=== PATIENT | female | born 1950 | race Caucasian/White ===

== ENCOUNTER 2019-03-21 01:17 | Observation (INO) | payer MEDICARE, SELFPAY ==
[2019-03-21] VITALS (14 sets, daily range): BP systolic 122–152; BP diastolic 49–74; PULSE 74–101; RESP 16–26; TEMP 35.9–37.5; O2SAT 91–97; BMI 56.5; BMI 58.4; BMI 57.6
--- NOTE | 2019-03-21 01:31 | DI.RAD.S_ITS ---
PROCEDURE: XR CHEST 1V INDICATIONS: fever, chills, low O2, uti symptoms TECHNIQUE: One view of the chest was acquired. COMPARISON: [facility], CR, XR CHEST 1 VIEW, 09/12/2018, 8:46. [facility], CR, XR CHEST 1 VIEW, 09/09/2018, 16:48. FINDINGS: Surgical changes and devices: None. Lungs and pleura: Bilateral perihilar infiltrates consistent with pulmonary edema or bilateral pneumonia. No pleural effusions or pneumothorax. Mediastinum: Mediastinal contours appear normal. Heart size is mildly increased. Bones and chest wall: No suspicious bony lesions. Overlying soft tissues appear unremarkable. IMPRESSION: Bilateral perihilar infiltrates consistent stomach inal bilateral pneumonia. Dictated by: Kaylah Conner M.D. on 03/21/2019 at 8:57 Approved by: Kaylah Conner M.D. on 03/21/2019 at 9:01
--- NOTE | 2019-03-21 01:33 | ED_ITS ---
HPI - General Adult General Chief complaint: Urogenital-Female Stated complaint: Fever, painful urination Time Seen by Provider: 03/21/19 01:18 Source: patient, EMS and old records reviewed Mode of arrival: EMS Limitations: no limitations History of Present Illness HPI narrative: This is a 68-year-old female who comes to the emergency department with complaint of chills and feeling feverish although subjectively. Patient said she did not have an objective fever. She has had some increasing weakness, hematuria and dysuria and noticed of odor to her urine. Patient states she noticed this in the last 24 hours, she lives on [facility] tried to go to the clinic but it was closed secondary to weather and then felt increasingly worse this evening and EMS was contacted. Patient was noted to have an elevated heart rate in the 1 teens as well as on oxygen in the mid 80s. Patient uses CPAP but does not normally use oxygen. She states her normal oxygen level is 93-94%. Patient has had some nasal congestion, nonproductive cough, she has not felt short of breath except while she was having chills. She was placed on O2 by the medics and felt significantly better. Patient denies any chest pain or pressure., she denies any nausea or vomiting. She denies any issues with bowel movements. She did notice the urinary changes as above. She also has a history of venous stasis and sometimes noticed some redness to her lower extremities but states when she takes off her shoes it seems to improve. She had 2 small lesions on her right alcantar that were draining earlier in the week but that has resolved she states they do not seem to be infected. Patient does have a history significant for polycythemia vera, she states she was on hydroxyurea but it seemed to worsen her atrial fibrillation and was stopped. She does have AFib, she is on warfarin, diltiazem and metoprolol. She also has a history of pulmonary emboli, she states that this does not feel similar to that had all. She states she was transported to [facility] for that episode. She denies any confusion or altered mental status and medics state that she has been alert and oriented throughout her traveled here. Related Data Home Medications Medication Instructions Recorded Confirmed ibuprofen [Advil Liqui-Gel] 600 mg PO QDAY #0 04/11/17 03/21/19 Resmed Airsense 10 CPAP #1 ea 08/15/18 03/21/19 diltiazem HCl 360 mg PO DAILY 01/22/19 03/21/19 lisinopril 30 mg PO DAILY 01/22/19 03/21/19 thyroid (pork) [[place] Thyroid] 90 mg PO DAILY 01/22/19 03/21/19 warfarin 5 mg PO DAILY 01/22/19 03/21/19 metoprolol succinate 50 mg PO DAILY 03/21/19 03/21/19 Allergies Allergy/AdvReac Type Severity Reaction Status Date / Time morphine [MORPHINE] Allergy Unknown Unverified 08/16/18 14:42 Review of Systems Review of Systems ROS Unobtainable: All systems reviewed & are unremarkable except as noted in HPI and below Patient History Medical History (Updated 03/21/19 @ 03:07 by Elise Boucher DO) Atrial fibrillation (Acute) Morbid obesity with body mass index (BMI) greater than or equal to 50 (Chronic) Obstructive sleep apnea of adult (Chronic) Peripheral vascular disease of lower extremity (Chronic) Social History marital status: details: to Vitaly household members: spouse lives independently: Yes caregiver/support person: No Previous occupational history: singing instructor Smoking Status: Never smoker Exam Narrative Exam Narrative: GEN: Obese, well-appearing female, alert and oriented x 3, patient appears to be in mild distress. HEENT: Atraumatic, pupils are equal round reactive to light, extraocular movements are intact, nares are clear. Patient is on nasal cannula. HEART: Regular rate and rhythm without murmur, clicks, rubs. LUNGS:Lungs her decreased bilaterally auscultation this may be secondary to habitus, no wheezes, rales, crackles, chest moves symmetrically, no tachypnea accessory muscle use. Patient speaks in full sentences. ABD:bowel sounds normal, soft, non-tender, no guarding, rebound, rigidity, no masses noted, no hepatosplenomegaly :No CVA tenderness. MSCL: Non-tender, no muscle atrophy, full range motion of upper extremity. Patient has pitting edema bilateral lower extremities, 1+. She has 2 small open sores on her left anterior alcantar there are what appear to be chronic venous stasis changes but do not appear to be infected. Mild erythema bilateral feet. NEURO:CN 2-12 intact, sensation normal. Initial Vital Signs Initial Vital Signs: Vital Signs Temperature 99.5 F 03/21/19 01:38 Pulse Rate 101 H 03/21/19 01:38 Respiratory Rate 26 H 03/21/19 01:38 Blood Pressure 152/57 H 03/21/19 01:38 Pulse Oximetry 93 03/21/19 01:38 Scores GCS [place] coma scale eye opening: Spontaneous [place] coma scale verbal response: Orientated [place] coma scale motor response: Obey commands [place] coma scale total score: 15 Course Orders Ordered: ED Orders 03/21/19 01:30 Influenza A & B (PCR) Stat 03/21/19 01:31 XR chest 1V Stat 03/21/19 01:47 B Type Natriuretic Peptide Stat Complete Blood Count AUTO DIFF Stat Comprehensive Metabolic Panel Stat Lactate (Lactic Acid) Stat Procalcitonin Stat Prothrombin Time INR Stat Thyroid Stimulating Hormone Stat Troponin & CK Cardiac Panel Stat 03/21/19 01:53 Blood Culture Stat 03/21/19 01:54 EKG-12 Lead Stat 03/21/19 02:15 Urinalysis and Microscopic Stat Urine Culture Stat Discontinued Medications Ceftriaxone Sodium/Dextrose (Rocephin) 1 gm in 50 mls @ 100 mls/hr IV NOW ONE Stop: 03/21/19 03:09 Last Infusion: 03/21/19 03:17 Dose: 100 mls/hr Documented by: Admin: 03/21/19 02:45 Dose: 100 mls/hr Documented by: ANGELLAL Sodium Chloride (Normal Saline 0.9%) 1,000 mls @ 150 mls/hr IV CONT LYNDSEY Stop: 03/21/19 04:02 Last Admin: 03/21/19 02:44 Dose: 150 mls/hr Documented by: CHRISTIANO Vital Signs Vital signs: Vital Signs - 8 hr 03/21/19 01:38 03/21/19 02:19 03/21/19 02:26 Temperature 99.5 F 99.5 F 99.5 F Pulse Rate 101 H 101 H 101 H Respiratory Rate 26 H 26 H 26 H Blood Pressure 152/57 H 152/57 H 152/57 H Blood Pressure [Left Arm] Pulse Oximetry 93 93 93 03/21/19 02:30 03/21/19 03:00 Temperature Pulse Rate 91 H 86 Respiratory Rate 19 21 Blood Pressure Blood Pressure [Left Arm] 126/51 L 123/55 L Pulse Oximetry 95 95 Medical Decision Making Lab Data Lab results reviewed: Yes I reviewed the patient's lab results. Result diagrams: 03/21/19 01:47 03/21/19 01:47 Labs: Lab Results 03/21/19 03/21/19 03/21/19 Range/Units 01:30 01:47 01:47 WBC 9.2 (4.5-11.0) X10^3/uL RBC 6.42 H (4.0-5.2) X10^6/uL Hgb 15.3 (12.0-16.0) g/dL Hct 45.2 (36-46) % MCV 70.4 L (80-100) fL MCH 23.8 L (26-34) PG MCHC 33.8 (30-36) % RDW 17.1 H (11.6-14.8) % Plt Count 584 H (150-400) X10^3/uL Neut % (Auto) 83.2 H (50-75) % Lymph % (Auto) 3.1 L (25-40) % Bland % (Auto) 12.6 (3-14) % Eos % (Auto) 0.8 L (2-4) % Baso % (Auto) 0.3 (0-2) % Neut # (Auto) 7600 H (2886-1482) /uL Lymph # (Auto) 300 L (1759-9540) /uL Bland # (Auto) 1200 H (0-900) /uL Eos # (Auto) 100 (0-450) /uL Baso # (Auto) 0 (0-100) /uL PT 27.9 H (10.1-12.7) SECONDS INR 2.4 H (0.9-1.3) Sodium (137-145) mmol/L Potassium (3.4-5.1) mmol/L Chloride (98-107) mmol/L Carbon Dioxide (22-32) mmol/L BUN (7-17) mg/dL Creatinine (0.52-1.04) mg/dL Estimated GFR (>60) mL/min BUN/Creatinine Ratio (6-22) Glucose (80-110) mg/dL Lactate (0.7-2.1) mmol/L Calcium (8.4-10.2) mg/dL Magnesium (1.6-2.3) mg/dL Total Bilirubin (0.2-1.3) mg/dL AST (14-36) IU/L ALT (<35) IU/L Alkaline Phosphatase (38-126) U/L Total Creatine Kinase (30-135) U/L CK-MB (CK-2) CK-MB (CK-2) Rel Index Troponin I (0.01-0.034) ng/mL B-Natriuretic Peptide (<100) Total Protein (6.3-8.2) g/dL Albumin (3.5-5.0) g/dL Globulin (1.7-4.1) g/dL Albumin/Globulin Ratio (1.0-2.8) Procalcitonin (<0.5) ng/mL TSH (0.47-4.68) uIU/mL Urine Color Urine Appearance Urine pH (4.5-8.0) Ur Specific [place] (1.000-1.035) Urine Protein (Negative) Urine Glucose (UA) (Negative) g/dL Urine Ketones (NEGATIVE) Urine Occult Blood (Negative) Urine Nitrate (Negative) Urine Bilirubin (NEGATIVE) Urine Urobilinogen (0.2) E.U./dL Ur Leukocyte Esterase (NEGATIVE) Urine RBC (0-5/HPF) Urine WBC (0-5/HPF) Ur Squamous Epith Cells (0-5/HPF) Urine Bacteria (None) Ur Culture Indicated? Influenza A (RT-PCR) Flu a negative (NEGATIVE) Influenza B (RT-PCR) Flu b negative (NEGATIVE) 03/21/19 03/21/19 03/21/19 Range/Units 01:47 01:47 01:47 WBC (4.5-11.0) X10^3/uL RBC (4.0-5.2) X10^6/uL Hgb (12.0-16.0) g/dL Hct (36-46) % MCV (80-100) fL MCH (26-34) PG MCHC (30-36) % RDW (11.6-14.8) % Plt Count (150-400) X10^3/uL Neut % (Auto) (50-75) % Lymph % (Auto) (25-40) % Bland % (Auto) (3-14) % Eos % (Auto) (2-4) % Baso % (Auto) (0-2) % Neut # (Auto) (2471-3385) /uL Lymph # (Auto) (9841-3590) /uL Bland # (Auto) (0-900) /uL Eos # (Auto) (0-450) /uL Baso # (Auto) (0-100) /uL PT (10.1-12.7) SECONDS INR (0.9-1.3) Sodium 136 L (137-145) mmol/L Potassium 4.0 (3.4-5.1) mmol/L Chloride 99 (98-107) mmol/L Carbon Dioxide 27 (22-32) mmol/L BUN 19 H (7-17) mg/dL Creatinine 0.70 (0.52-1.04) mg/dL Estimated GFR > 60.0 (>60) mL/min BUN/Creatinine Ratio 27.1 H (6-22) Glucose 135 H (80-110) mg/dL Lactate 0.8 (0.7-2.1) mmol/L Calcium 9.4 (8.4-10.2) mg/dL Magnesium (1.6-2.3) mg/dL Total Bilirubin 0.7 (0.2-1.3) mg/dL AST 22 (14-36) IU/L ALT 13 (<35) IU/L Alkaline Phosphatase 99 (38-126) U/L Total Creatine Kinase < 20 L (30-135) U/L CK-MB (CK-2) TNP CK-MB (CK-2) Rel Index TNP Troponin I 0.033 (0.01-0.034) ng/mL B-Natriuretic Peptide (<100) Total Protein 7.9 (6.3-8.2) g/dL Albumin 4.1 (3.5-5.0) g/dL Globulin 3.8 (1.7-4.1) g/dL Albumin/Globulin Ratio 1.1 (1.0-2.8) Procalcitonin 2.58 H (<0.5) ng/mL TSH (0.47-4.68) uIU/mL Urine Color Urine Appearance Urine pH (4.5-8.0) Ur Specific [place] (1.000-1.035) Urine Protein (Negative) Urine Glucose (UA) (Negative) g/dL Urine Ketones (NEGATIVE) Urine Occult Blood (Negative) Urine Nitrate (Negative) Urine Bilirubin (NEGATIVE) Urine Urobilinogen (0.2) E.U./dL Ur Leukocyte Esterase (NEGATIVE) Urine RBC (0-5/HPF) Urine WBC (0-5/HPF) Ur Squamous Epith Cells (0-5/HPF) Urine Bacteria (None) Ur Culture Indicated? Influenza A (RT-PCR) (NEGATIVE) Influenza B (RT-PCR) (NEGATIVE) 03/21/19 03/21/19 03/21/19 Range/Units 01:47 01:47 01:47 WBC (4.5-11.0) X10^3/uL RBC (4.0-5.2) X10^6/uL Hgb (12.0-16.0) g/dL Hct (36-46) % MCV (80-100) fL MCH (26-34) PG MCHC (30-36) % RDW (11.6-14.8) % Plt Count (150-400) X10^3/uL Neut % (Auto) (50-75) % Lymph % (Auto) (25-40) % Bland % (Auto) (3-14) % Eos % (Auto) (2-4) % Baso % (Auto) (0-2) % Neut # (Auto) (9137-0304) /uL Lymph # (Auto) (1419-2605) /uL Bland # (Auto) (0-900) /uL Eos # (Auto) (0-450) /uL Baso # (Auto) (0-100) /uL PT (10.1-12.7) SECONDS INR (0.9-1.3) Sodium (137-145) mmol/L Potassium (3.4-5.1) mmol/L Chloride (98-107) mmol/L Carbon Dioxide (22-32) mmol/L BUN (7-17) mg/dL Creatinine (0.52-1.04) mg/dL Estimated GFR (>60) mL/min BUN/Creatinine Ratio (6-22) Glucose (80-110) mg/dL Lactate (0.7-2.1) mmol/L Calcium (8.4-10.2) mg/dL Magnesium 2.1 (1.6-2.3) mg/dL Total Bilirubin (0.2-1.3) mg/dL AST (14-36) IU/L ALT (<35) IU/L Alkaline Phosphatase (38-126) U/L Total Creatine Kinase (30-135) U/L CK-MB (CK-2) CK-MB (CK-2) Rel Index Troponin I (0.01-0.034) ng/mL B-Natriuretic Peptide 164 H (<100) Total Protein (6.3-8.2) g/dL Albumin (3.5-5.0) g/dL Globulin (1.7-4.1) g/dL Albumin/Globulin Ratio (1.0-2.8) Procalcitonin (<0.5) ng/mL TSH 2.31 (0.47-4.68) uIU/mL Urine Color Urine Appearance Urine pH (4.5-8.0) Ur Specific [place] (1.000-1.035) Urine Protein (Negative) Urine Glucose (UA) (Negative) g/dL Urine Ketones (NEGATIVE) Urine Occult Blood (Negative) Urine Nitrate (Negative) Urine Bilirubin (NEGATIVE) Urine Urobilinogen (0.2) E.U./dL Ur Leukocyte Esterase (NEGATIVE) Urine RBC (0-5/HPF) Urine WBC (0-5/HPF) Ur Squamous Epith Cells (0-5/HPF) Urine Bacteria (None) Ur Culture Indicated? Influenza A (RT-PCR) (NEGATIVE) Influenza B (RT-PCR) (NEGATIVE) 03/21/19 Range/Units 02:15 WBC (4.5-11.0) X10^3/uL RBC (4.0-5.2) X10^6/uL Hgb (12.0-16.0) g/dL Hct (36-46) % MCV (80-100) fL MCH (26-34) PG MCHC (30-36) % RDW (11.6-14.8) % Plt Count (150-400) X10^3/uL Neut % (Auto) (50-75) % Lymph % (Auto) (25-40) % Bland % (Auto) (3-14) % Eos % (Auto) (2-4) % Baso % (Auto) (0-2) % Neut # (Auto) (5850-3350) /uL Lymph # (Auto) (0656-4804) /uL Bland # (Auto) (0-900) /uL Eos # (Auto) (0-450) /uL Baso # (Auto) (0-100) /uL PT (10.1-12.7) SECONDS INR (0.9-1.3) Sodium (137-145) mmol/L Potassium (3.4-5.1) mmol/L Chloride (98-107) mmol/L Carbon Dioxide (22-32) mmol/L BUN (7-17) mg/dL Creatinine (0.52-1.04) mg/dL Estimated GFR (>60) mL/min BUN/Creatinine Ratio (6-22) Glucose (80-110) mg/dL Lactate (0.7-2.1) mmol/L Calcium (8.4-10.2) mg/dL Magnesium (1.6-2.3) mg/dL Total Bilirubin (0.2-1.3) mg/dL AST (14-36) IU/L ALT (<35) IU/L Alkaline Phosphatase (38-126) U/L Total Creatine Kinase (30-135) U/L CK-MB (CK-2) CK-MB (CK-2) Rel Index Troponin I (0.01-0.034) ng/mL B-Natriuretic Peptide (<100) Total Protein (6.3-8.2) g/dL Albumin (3.5-5.0) g/dL Globulin (1.7-4.1) g/dL Albumin/Globulin Ratio (1.0-2.8) Procalcitonin (<0.5) ng/mL TSH (0.47-4.68) uIU/mL Urine Color Yellow Urine Appearance Slightly cloudy Urine pH 5.5 (4.5-8.0) Ur Specific [place] 1.020 (1.000-1.035) Urine Protein 1+ H (Negative) Urine Glucose (UA) Negative (Negative) g/dL Urine Ketones Trace H (NEGATIVE) Urine Occult Blood 3+ H (Negative) Urine Nitrate Positive (Negative) Urine Bilirubin Negative (NEGATIVE) Urine Urobilinogen 0.2 (0.2) E.U./dL Ur Leukocyte Esterase Trace H (NEGATIVE) Urine RBC 10-30/hpf H (0-5/HPF) Urine WBC 10-30/hpf H (0-5/HPF) Ur Squamous Epith Cells 0-1 /hpf (0-5/HPF) Urine Bacteria Many (>30) H (None) Ur Culture Indicated? Specimen cultured Influenza A (RT-PCR) (NEGATIVE) Influenza B (RT-PCR) (NEGATIVE) Imaging Data Chest x-ray: My Impression: ? infiltrate left lower, cardiomegaly, no pneumothorax, no fracture noted, no free air. No prior for comparison. ECG Data Attestation: I personally reviewed and interpreted this ECG as follows: Prior ECG tracings: available for review Interpretation: NSR 97, ID [id number], QRS 84, QTC 382. With no ST changes, Patient has prior from 03/03/2009 which appears similar. MDM Narrative Medical decision making narrative: Patient comes in with complaint of UTI sym ptoms with nitrate positive, trace leuks with many bacteria and tendon 30 RBC and WBCs. Patient is afebrile in the department and HR in the 80's but was elevated with EMS and 101 on arrival. Patient has normal white count, platelets are elevated consistent with history of polycythemia vera. Patient is anticoagulated with INR of 2.4, chemistry shows a sodium 136, normal electrolytes otherwise with a BUN of 19 and a glucose of 135. Troponin is negative with a BNP of 164 and a procalcitonin of 2.58. Chest x-ray shows possible infiltrate. Patient has O2 in the 88% range. Patient is morbidly obese with history of PE but appropriately anticoagulated. Discussed with hospitalist [employer] Naif Nielson who accepts. Patient is not likely candidate for CT Angio based on size. Discusses possible VQ scan in am although unsure of weight limitations. Decision made not to anticoagulate at this time as she is therapuetic with INR. Started on Rocephin IV. Blood cultures pending. Patient and I also discussed all findings and that we cannot totally rule out PE at this time. Patient is comfortable with current plan. Discharge Plan Departure Patient Disposition: Admitted as Observation Clinical Impression: Acute UTI, Low O2 saturation Referrals: Martha Shearer PA-C [Primary Care Provider] - Admit Date/Time: 03/21/19 03:06 Admit Provider: Cj Nielson
[2019-03-21 02:10] LABS: Influenza A - CEPHEID Flu A NEGATIVE (NEGATIVE); Influenza B - CEPHEID Flu B NEGATIVE (NEGATIVE)
[2019-03-21 02:10] LABS: Add Manual Diff / Slide Review NO; Basophils Absolute Auto 0 /uL (0-100); Basophils Percent Auto 0.3 % (0-2); Eosinophils Absolute Auto 100 /uL (0-450); Eosinophils Percent Auto 0.8 % (2-4); Hematocrit 45.2 % (36-46); Hemoglobin 15.3 g/dL (12.0-16.0); Lymphocytes Absolute Auto 300 /uL (1100-4500); Lymphocytes Percent Auto 3.1 % (25-40); Mean Corpuscular HGB Conc 33.8 % (30-36); Mean Corpuscular Hemoglobin 23.8 PG (26-34); Mean Corpuscular Volume 70.4 fL (80-100); Monocytes Absolute Auto 1200 /uL (0-900); Monocytes Percent Auto 12.6 % (3-14); Neutrophils Absolute Auto 7600 /uL (1500-7000); Neutrophils Percent Auto 83.2 % (50-75); Platelet Count 584 X10^3/uL (150-400); Red Blood Cell Count 6.42 X10^6/uL (4.0-5.2); Red Cell Distribution Width 17.1 % (11.6-14.8); White Blood Cell Count 9.2 X10^3/uL (4.5-11.0)
[2019-03-21 02:13] LABS: INR 2.4 (0.9-1.3); Prothrombin Time 27.9 SECONDS (10.1-12.7)
[2019-03-21 02:16] LABS: Alanine Aminotransferase 13 IU/L (<35); Albumin 4.1 g/dL (3.5-5.0); Albumin Globulin Ratio 1.1 (1.0-2.8); Alkaline Phosphatase 99 U/L (38-126); Aspartate Aminotransferase 22 IU/L (14-36); BUN Creatinine Ratio 27.1 (6-22); Bilirubin Total 0.7 mg/dL (0.2-1.3); Blood Urea Nitrogen 19 mg/dL (7-17); Calcium 9.4 mg/dL (8.4-10.2); Carbon Dioxide 27 mmol/L (22-32); Chloride 99 mmol/L (98-107); Creatine Kinase < 20 U/L (30-135); Estimated Glomerular Filt Rate > 60.0 mL/min (>60); Globulin 3.8 g/dL (1.7-4.1); Glucose 135 mg/dL (80-110); HEMOLYSIS < 15 (0-50); Sodium 136 mmol/L (137-145); Total Protein 7.9 g/dL (6.3-8.2)
[2019-03-21 02:17] LABS: Lactate (Lactic Acid) 0.8 mmol/L (0.7-2.1)
[2019-03-21 02:26] LABS: Bilirubin Urine UA NEGATIVE (NEGATIVE); Color Urine UA YELLOW; Glucose Urine UA NEGATIVE (Negative); Ketones Urine UA TRACE (NEGATIVE); Leukocyte Esterase Urine UA TRACE (NEGATIVE); Nitrite Urine UA POSITIVE (Negative); Occult Blood Urine UA 3+ (Negative); Protein Urine UA 1+ (Negative); Urobilinogen Urine UA 0.2 E.U./dL (0.2)
[2019-03-21 02:27] LABS: Appearance Urine UA Slightly Cloudy; RBC Urine 10-30/HPF (0-5/HPF); Squamous Epithelial Cell Urine 0-1 /HPF (0-5/HPF); WBC Urine 10-30/HPF (0-5/HPF); pH Urine UA 5.5 (4.5-8.0)
[2019-03-21 02:28] LABS: Troponin I 0.033 ng/mL (0.01-0.034)
[2019-03-21 02:28] LABS: Bacteria Urine Many (>30); Culture Indicated Urine Specimen Cultured
[2019-03-21 02:30] LABS: B Type Natriuretic Peptide 164 (<100)
[2019-03-21 02:42] LABS: Procalcitonin 2.58 ng/mL (<0.5)
[2019-03-21] MEDS: SODIUM CHLORIDE 0.9% 1,000 ML 150 ML IV (02:44)
[2019-03-21] MEDS: CEFTRIAXONE 1 GM/50 ML FROZ.PIGGY IV ×2 (02:45→04:45)
[2019-03-21 02:52] LABS: Thyroid Stimulating Hormone 2.31 uIU/mL (0.47-4.68)
[2019-03-21 03:37] LABS: Magnesium 2.1 mg/dL (1.6-2.3)
--- NOTE | 2019-03-21 04:12 | PM.HP.1 ---
History of Present Illness History of Present Illness Date Patient Seen: 03/21/19 Time Patient Seen: 03:33 Chief complaint: Fever, painful urination Narrative: Ms. Ewa Emerson is a 68-year-old female patient with a history significant for paroxysmal atrial fibrillation, prior pulmonary embolism on warfarin, polycythemia vera, hypothyroidism and obstructive sleep apnea on CPAP who presents to the ER with complaints of fevers chills and dysuria. The patient states her symptoms began over 24 hours ago. She lives on [facility] and attempted to go to the clinic yesterday which was closed due to inclement weather. Her symptoms were progressive and she called EMS tonight. Patient reports subjective fever with chills, hematuria and dysuria. She was also found to be hypoxemic by EMS with an SpO2 at 88 on room air. Patient has a pulse oximeter at home and states she is typically 94-95%. She reports chronic cough related to lisinopril that is unchanged, dry and nonproductive. She does endorse nasal congestion no sore throat. She denies headache or dizziness. She has no chest pain and denies palpitations. She denies abdominal pain nausea or vomiting. She reports loose bowel movements but not diarrhea and has urinary symptoms of painful urination with hematuria. She has bilateral lower extremity venous stasis dermatitis with bilateral lower extremity edema. Patient reports will wake up in the morning with numbness bilateral hands that resolves. She states she is ambulatory but frequently use wheelchair due to deconditioning is working with physical therapy. Upon arrival to the ER the patient has a temperature of 99.5?, is tachycardic at 101, pressure 152/57, respiratory rate of 26 saturating 93% on 2 liters/minute nasal cannula. A chest x-ray is obtained which shows a possible left lower lobe pneumonia, normal cardiac silhouette. On laboratory analysis the patient has white count 9.2, hemoglobin of 15.3, hematocrit of 45.2 and platelets of 584. Her electrolytes within range with a potassium of 4.0 and magnesium 2.1. Lactic acid is normal at 0.8 has elevated procalcitonin 2.5 8. Her totals CK is less than 20 and her troponin is 0.0 3 3. Her BN this is a 164. Her INR is therapeutic at 2.4. On urinalysis she has 1 + protein, trace ketone S, 3+ blood with 10 and 30 WBCs, many bacteria is positive for nitrates and leukocyte esterase. In the ER the patient received 1 g of ceftriaxone IV in the patient is admitted to the medicine service for symptomatic UTI with hematuria and acute respiratory failure with hypoxemia. Patient History Medical History (Updated 03/21/19 @ 04:37 by CAROLINE Castro) History of pulmonary embolism (Acute) Hypertension (Acute) Hypothyroidism (Acute) Morbid obesity with body mass index (BMI) greater than or equal to 50 (Chronic) Obstructive sleep apnea of adult (Chronic) Paroxysmal atrial fibrillation (Acute) Peripheral vascular disease of lower extremity (Chronic) Polycythemia (Inactive) Surgical History (Updated 03/21/19 @ 04:37 by CAROLINE Castro) History of bilateral knee replacement (Acute) Family & Social History Family History (Updated 03/21/19 @ 04:40 by CAROLINE Castro) Father Cardiac disease History of heart bypass surgery Bipolar 1 disorder Mother Scleroderma Brother Cancer Brother Seizure disorder Social History: household members spouse lives independently Yes caregiver/support person No Safety & Behavioral: Feels Safe in Current Yes Environment Been Physically Hurt or No Threatened By a Person Tobacco & Substance use: Smoking Status Never smoker alcohol intake frequency 0-2 drinks per day Substance Use Type does not use Comment: The patient lives in a single family single-level home with ramps on [facility] with her to whom she has been for 35 years. Her father has a history of being bipolar and has cardiac disease and has had multiple bypass surgeries and from heart attack. Her mother had scleroderma and age 87. She has 2 brothers 1 whom has pancreatic cancer the other has seizure disorder. She has no children. Occupation: Retired [employer] Smoking: Patient has never used tobacco products. Alcohol: Patient is not consume alcohol. Substance use: The patient denies recreation pharmaceuticals herbal or cannabis products. Advanced directives: The patient states she has POLST form indicating her desire to be FULL CODE. She designates her Vitaly to be her surrogate decision maker. Meds Home Medications and Allergies Home Medications Medication Instructions Recorded Confirmed Type ibuprofen [Advil Liqui-Gel] 600 mg PO QDAY #0 04/11/17 03/21/19 History Resmed Airsense 10 CPAP #1 ea 08/15/18 03/21/19 History diltiazem HCl 360 mg PO DAILY 01/22/19 03/21/19 History lisinopril 30 mg PO DAILY 01/22/19 03/21/19 History thyroid (pork) [Nageezi Thyroid] 90 mg PO DAILY 01/22/19 03/21/19 History warfarin 5 mg PO DAILY 01/22/19 03/21/19 History metoprolol succinate 50 mg PO DAILY 03/21/19 03/21/19 History Allergies Allergy/AdvReac Type Severity Reaction Status Date / Time morphine [MORPHINE] Allergy Severe Anaphylaxis Verified 03/21/19 04:21 Review of Systems Review of Systems Narrative: All systems reviewed and found unremarkable under discussed in the HPI above. Exam Vital Signs (past 8 hours): - 03/21/19 01:38 03/21/19 02:19 03/21/19 02:26 Temperature 99.5 F 99.5 F 99.5 F Pulse Rate 101 H 101 H 101 H Respiratory Rate 26 H 26 H 26 H Blood Pressure 152/57 H 152/57 H 152/57 H Blood Pressure [Left Arm] Pulse Oximetry 93 93 93 03/21/19 02:30 03/21/19 03:00 Temperature Pulse Rate 91 H 86 Respiratory Rate 19 21 Blood Pressure Blood Pressure [Left Arm] 126/51 L 123/55 L Pulse Oximetry 95 95 Oxygen Delivery Method Nasal Cannula Oxygen Flow Rate 2 Narrative Exam Narrative: GENERAL APPEARANCE: well developed, morbidly obese female, congested appearing but in no acute distress on supplemental oxygen. HEENT: Normocephalic, wears glasses, PERRLA, conjunctiva clear, sclera anicteric EOMs intact without nystagmus, no sinus tenderness to percussion, no rhinorrhea, mucous membranes are moist and pink without lesions or exudate. NECK/THYROID: neck supple, no JVD, no thyromegaly, trachea midline. LYMPH NODES: no cervical or supraclavicular lymphadenopathy. SKIN: [place], warm and dry, venous stasis dermatitis bilateral lower extremities HEART: regular rate and rhythm, S1-S2, 2/6 systolic murmur loudest at right upper sternal border, no rubs or gallops, brisk capillary refill, 1 to 2+ lower extremity edema LUNGS: Diminished on auscultation bilaterally, no coarseness crackles or wheezing, no cough present CHEST: Symmetrical movement, no accessory muscle use, good tidal volume. ABDOMEN: Soft, obese, dull to percussion, no l tenderness or guarding, no organomegaly, no flank or suprapubic tenderness, active bowel tones. BACK: Normal curvature, nontender to palpation, no CVA tenderness on percussion EXTREMITIES: moves all extremities, strength is 5/5 and symmetrical, no deformities or joint effusions. NEUROLOGIC: AAO x4, no focal neurologic deficits, sensation intact to light touch, hearing grossly normal to speech. PSYCH: Cooperative, linear thought process, appropriate with stable behavior Objective Labs Result Diagrams: 03/21/19 01:47 03/21/19 01:47 Labs: Laboratory Results - last 24 hr 03/21/19 03/21/19 03/21/19 01:30 01:47 01:47 WBC 9.2 RBC 6.42 H Hgb 15.3 Hct 45.2 MCV 70.4 L MCH 23.8 L MCHC 33.8 RDW 17.1 H Plt Count 584 H Neut % (Auto) 83.2 H Lymph % (Auto) 3.1 L [place]ink[place] % (Auto) 12.6 Eos % (Auto) 0.8 L Baso % (Auto) 0.3 Neut # (Auto) 7600 H Lymph # (Auto) 300 L Winkler # (Auto) 1200 H Eos # (Auto) 100 Baso # (Auto) 0 PT 27.9 H INR 2.4 H Sodium Potassium Chloride Carbon Dioxide BUN Creatinine Estimated GFR BUN/Creatinine Ratio Glucose Lactate Calcium Magnesium Total Bilirubin AST ALT Alkaline Phosphatase Total Creatine Kinase CK-MB (CK-2) CK-MB (CK-2) Rel Index Troponin I B-Natriuretic Peptide Total Protein Albumin Globulin Albumin/Globulin Ratio Procalcitonin TSH Urine Color Urine Appearance Urine pH Ur Specific [place] Urine Protein Urine Glucose (UA) Urine Ketones Urine Occult Blood Urine Nitrate Urine Bilirubin Urine Urobilinogen Ur Leukocyte Esterase Urine RBC Urine WBC Ur Squamous Epith Cells Urine Bacteria Ur Culture Indicated? Influenza A (RT-PCR) Flu a negative Influenza B (RT-PCR) Flu b negative 03/21/19 03/21/19 03/21/19 01:47 01:47 01:47 WBC RBC Hgb Hct MCV MCH MCHC RDW Plt Count Neut % (Auto) Lymph % (Auto) [place] % (Auto) Eos % (Auto) Baso % (Auto) Neut # (Auto) Lymph # (Auto) Wink[place] # (Auto) Eos # (Auto) Baso # (Auto) PT INR Sodium 136 L Potassium 4.0 Chloride 99 Carbon Dioxide 27 BUN 19 H Creatinine 0.70 Estimated GFR > 60.0 BUN/Creatinine Ratio 27.1 H Glucose 135 H Lactate 0.8 Calcium 9.4 Magnesium Total Bilirubin 0.7 AST 22 ALT 13 Alkaline Phosphatase 99 Total Creatine Kinase < 20 L CK-MB (CK-2) TNP CK-MB (CK-2) Rel Index TNP Troponin I 0.033 B-Natriuretic Peptide Total Protein 7.9 Albumin 4.1 Globulin 3.8 Albumin/Globulin Ratio 1.1 Procalcitonin 2.58 H TSH Urine Color Urine Appearance Urine pH Ur Specific [place] Urine Protein Urine Glucose (UA) Urine Ketones Urine Occult Blood Urine Nitrate Urine Bilirubin Urine Urobilinogen Ur Leukocyte Esterase Urine RBC Urine WBC Ur Squamous Epith Cells Urine Bacteria Ur Culture Indicated? Influenza A (RT-PCR) Influenza B (RT-PCR) 03/21/19 03/21/19 03/21/19 01:47 01:47 01:47 WBC RBC Hgb Hct MCV MCH MCHC RDW Plt Count Neut % (Auto) Lymph % (Auto) [place] % (Auto) Eos % (Auto) Baso % (Auto) Neut # (Auto) Lymph # (Auto) Wink[place] # (Auto) Eos # (Auto) Baso # (Auto) PT INR Sodium Potassium Chloride Carbon Dioxide BUN Creatinine Estimated GFR BUN/Creatinine Ratio Glucose Lactate Calcium Magnesium 2.1 Total Bilirubin AST ALT Alkaline Phosphatase Total Creatine Kinase CK-MB (CK-2) CK-MB (CK-2) Rel Index Troponin I B-Natriuretic Peptide 164 H Total Protein Albumin Globulin Albumin/Globulin Ratio Procalcitonin TSH 2.31 Urine Color Urine Appearance Urine pH Ur Specific [place] Urine Protein Urine Glucose (UA) Urine Ketones Urine Occult Blood Urine Nitrate Urine Bilirubin Urine Urobilinogen Ur Leukocyte Esterase Urine RBC Urine WBC Ur Squamous Epith Cells Urine Bacteria Ur Culture Indicated? Influenza A (RT-PCR) Influenza B (RT-PCR) 03/21/19 02:15 WBC RBC Hgb Hct MCV MCH MCHC RDW Plt Count Neut % (Auto) Lymph % (Auto) [place] % (Auto) Eos % (Auto) Baso % (Auto) Neut # (Auto) Lymph # (Auto) Winkler # (Auto) Eos # (Auto) Baso # (Auto) PT INR Sodium Potassium Chloride Carbon Dioxide BUN Creatinine Estimated GFR BUN/Creatinine Ratio Glucose Lactate Calcium Magnesium Total Bilirubin AST ALT Alkaline Phosphatase Total Creatine Kinase CK-MB (CK-2) CK-MB (CK-2) Rel Index Troponin I B-Natriuretic Peptide Total Protein Albumin Globulin Albumin/Globulin Ratio Procalcitonin TSH Urine Color Yellow Urine Appearance Slightly cloudy Urine pH 5.5 Ur Specific [place] 1.020 Urine Protein 1+ H Urine Glucose (UA) Negative Urine Ketones Trace H Urine Occult Blood 3+ H Urine Nitrate Positive Urine Bilirubin Negative Urine Urobilinogen 0.2 Ur Leukocyte Esterase Trace H Urine RBC 10-30/hpf H Urine WBC 10-30/hpf H Ur Squamous Epith Cells 0-1 /hpf Urine Bacteria Many (>30) H Ur Culture Indicated? Specimen cultured Influenza A (RT-PCR) Influenza B (RT-PCR) Assessment & Plan Assessment & Plan narrative: This is a 68-year-old female patient who was brought to the ER by EMS from [facility] with acute respiratory failure with hypoxemia and acute urinary tract infection with hematuria. 1. Acute respiratory failure with hypoxemia, probable community-acquired pneumonia, present on admission, active. -patient with no prior history of pulmonary disease, has a home pulse ox and reports typical saturation of 94-95%. She reports a chronic dry and nonproductive TONY cough that is unchanged. -upon arrival of EMS at home patient's O2 sat was reportedly 88% on room air. O2 saturation improves on 2 L of oxygen nasal cannula to 93-96%. -on upon arrival to the ER patient is tachypneic at 26 saturating 93% on 2 liters/minute with a PF ratio of 246. -history of prior pulmonary embolism related to atrial fibrillation currently therapeutic on warfarin. No complaints chest pain no change in cough. -12 lead EKG shows sinus rhythm ventricular rate of 97 with no ectopy, ST or T-wave changes right indication of right ventricular strain. Troponin is 0.033. -chest x-ray reveals fluffiness left base, no wheezing, coarseness or crackles appreciated on auscultation, exam limited by patient's obesity. -ordered ceftriaxone 2 g IV daily and azithromycin 500 mg IV daily. -will obtain respiratory PCR panel. -respiratory therapy to consult, evaluate and treat. 2. Acute Urinary tract infection with hematuria, present on admission, active. -patient with urinary symptoms for approximately 1 day with painful urination and hematuria. History of chronic UTIs as a child but not in adult life. -associated symptoms of fevers chills but no nausea vomiting. -urinalysis positive for 3+ blood, WBCs, nitrites and leukocyte esterase with many bacteria, reflexed to culture. Lactic acid is 0.8 and Procalcitonin is 2.58. -ordered ceftriaxone 2 g IV daily, higher dose for pulmonary treatment. -patient mildly dehydrated with BUN creatinine ratio of 27, IV normal saline 100 cc/hour. 3. Paroxysmal atrial fibrillation, chronic, sinus rhythm on admission, stable -patient without complaints of chest pain or palpitations. -sinus rhythm on EKG without ectopy ST or T-wave changes. -continue patient's home regimen of diltiazem 360 mg daily and metoprolol 50 mg daily. 4. Long-term anticoagulation, chronic, stable -INR on admission is 2.4. -continue home regimen of warfarin 5 mg daily. 5. Essential Hypertension, chronic, present on admission, active. -blood pressure on admission is 152/57 improved to 123 over 55 on admission to the acute care floor. -will continue patient's home regimen of lisinopril 30 mg daily. She also takes diltiazem 360 mg of metoprolol 50 mg both daily for control of atrial fibrillation. 6. Polycythemia vera, chronic, present on admission, stable. -patient evaluated by Dr. 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 -placed on hydroxyurea which the patient could not tolerate and discontinued. -blood count today shows red cell count of 6.42 with hemoglobin of 15.3 and hematocrit of 45.2, MCV is low at 74.4 with RDW elevated at 17.1 and platelets of 584. -no acute treatment is indicated this time. 7. Obstructive sleep apnea on CPAP, chronic, stable. -patient use CPAP at home and equipment came with the patient.. -respiratory therapy to consult, evaluate and treat. -CPAP per RT protocol with patient's home device. 8. Hypothyroidism, chronic, stable -admission labs show TSH is 2.31. -continue patient's home regimen of Nageezi thyroid 90 mg daily. VTE prophylaxis: Bilateral compression hose, therapeutic on warfarin. Diet: Heart healthy IVF: Normal saline 100 cc/hour. The patient is admitted to the hospital due to the severity or symptoms and potential for complications and adverse events. The patient is admitted as an inpatient related to acute respiratory failure with hypoxemia related to probable pneumonia and symptomatic urinary tract infection requiring IV antibiotics. Her expected length of stay is greater than 2 midnights. Scores GCS [place] coma scale eye opening: Spontaneous [place] coma scale verbal response: Orientated [place] coma scale motor response: Obey commands [place] coma scale total score: 15
[2019-03-21] MEDS: SODIUM CHLORIDE 0.9% 1,000 ML 100 ML IV ×2 (04:43→13:55)
--- NOTE | 2019-03-21 04:52 | PC.NURSE ---
MENTAL HEALTH PROFESSIONAL note: washed patient's heidi area, leg folds, in the creases under her breasts. Applied baby powder in these areas, and placed pillow cases in those folds. Changed patient's gown. Got patient up the BSC. Placed telemetry unit on.
--- NOTE | 2019-03-21 05:13 | PC.ADMIT ---
[id number] Admission Note: The patient,Ewa Emerson,68 y/o, was given written information regarding hospital policies, unit procedures and contact persons. Patient's smoking status: Never smoker. Vital Signs - 8 hr 03/21/19 01:38 03/21/19 02:19 03/21/19 02:26 Temperature 99.5 F 99.5 F 99.5 F Pulse Rate 101 H 101 H 101 H Respiratory Rate 26 H 26 H 26 H Blood Pressure 152/57 H 152/57 H 152/57 H Blood Pressure [Left Arm] Pulse Oximetry 93 93 93 03/21/19 02:30 03/21/19 03:00 Temperature Pulse Rate 91 H 86 Respiratory Rate 19 21 Blood Pressure Blood Pressure [Left Arm] 126/51 L 123/55 L Pulse Oximetry 95 95 Patient arrived via stretcher from ED accompanied by RN and MULTICUT LINE OPERATOR. Transferred self via FWW to bed. AxOx3, able to make needs known, oriented to room, call light and safety procedures. Full skin check revealed maceration to right breast fold and excoriation to left breast fold, abdominal folds, groin and heidi-area. Areas of blanching to backs of legs. MULTICUT LINE OPERATOR's did extensive cleaning, drying, powdering, and placed pillow cases in all folds. Patient reports that she puts coconut oil under her skin folds, educated patient against this practice in the future but was adamant that it helps. Patient has a history of weeping ulcers to legs and has several scabbed areas to bilateral legs and one bandaid on back of right leg. Patient with diminished lung sounds throughout, on 2L bled into CPAP, also on day time oxygen currently but no home use. Patient was able to ambulated to bedside commode with 1PA and FWW, urine is malodorous. Denies hx of falls but is a high fall risk, bed alarm on and functioning, patient acknowledged all teaching regarding safety.
[2019-03-21] MEDS: AZITHROMYCIN 500 MG in DEXTROSE 5% IN WATER 250 ML IV (05:42)
[2019-03-21] MEDS: ACETAMINOPHEN 325 MG TABLET 650 MG PO (06:14)
[2019-03-21 07:21] LABS: Adenovirus Not Detected (Not Detect); Bordetella pertussis Not Detected (Not Detect); Chlamydophila pneumoniae Not Detected (Not Detect); Coronavirus 229E Not Detected (Not Detect); Coronavirus HKU1 Not Detected (Not Detect); Coronavirus NL 63 Not Detected (Not Detect); Coronavirus OC43 Not Detected (Not Detect); Human Metapneumovirus Not Detected (Not Detect); Human Rhinovirus/Enterovirus Not Detected (Not Detect); Influenza A Not Detected (Not Detect); Influenza B Not Detected (Not Detect); Mycoplasma pneumoniae Not Detected (Not Detect); Parainfluenza Virus 1 Not Detected (Not Detect); Parainfluenza Virus 2 Not Detected (Not Detect); Parainfluenza Virus 3 Not Detected (Not Detect); Parainfluenza Virus 4 Not Detected (Not Detect); Respiratory Syncytial Virus Not Detected (Not Detect)
[2019-03-21] MEDS: METOPROLOL ER 50 MG TABLET PO (08:54)
[2019-03-21] MEDS: LISINOPRIL 10 MG TABLET 30 MG PO (08:54)
[2019-03-21 10:29] LABS: Add Manual Diff / Slide Review NO; Basophils Absolute Auto 0 /uL (0-100); Basophils Percent Auto 0.3 % (0-2); Eosinophils Absolute Auto 100 /uL (0-450); Eosinophils Percent Auto 0.7 % (2-4); Hematocrit 42.7 % (36-46); Hemoglobin 13.9 g/dL (12.0-16.0); Lymphocytes Absolute Auto 600 /uL (1100-4500); Lymphocytes Percent Auto 9.2 % (25-40); Mean Corpuscular HGB Conc 32.5 % (30-36); Mean Corpuscular Hemoglobin 23.2 PG (26-34); Mean Corpuscular Volume 71.4 fL (80-100); Monocytes Absolute Auto 1100 /uL (0-900); Monocytes Percent Auto 16.3 % (3-14); Neutrophils Absolute Auto 5100 /uL (1500-7000); Neutrophils Percent Auto 73.5 % (50-75); Platelet Count 495 X10^3/uL (150-400); Red Blood Cell Count 5.98 X10^6/uL (4.0-5.2); Red Cell Distribution Width 17.2 % (11.6-14.8); White Blood Cell Count 6.9 X10^3/uL (4.5-11.0)
[2019-03-21 10:43] LABS: BUN Creatinine Ratio 24.3 (6-22); Blood Urea Nitrogen 17 mg/dL (7-17); Calcium 8.8 mg/dL (8.4-10.2); Carbon Dioxide 29 mmol/L (22-32); Chloride 102 mmol/L (98-107); Estimated Glomerular Filt Rate > 60.0 mL/min (>60); Glucose 107 mg/dL (80-110); HEMOLYSIS < 15 (0-50); Potassium 3.6 mmol/L (3.4-5.1); Sodium 135 mmol/L (137-145)
--- NOTE | 2019-03-21 11:05 | PT.IIE ---
Current Diagnoses Obstructive sleep apnea (adult) (pediatric) (03/21/19) Surgical History (Last Updated 03/21/19 @ 04:37 by CAROLINE Castro) History of bilateral knee replacement (Acute) Medical History (Last Updated 03/21/19 @ 04:37 by CAROLINE Castro) History of pulmonary embolism (Acute) Hypertension (Acute) Hypothyroidism (Acute) Morbid obesity with body mass index (BMI) greater than or equal to 50 (Chronic) Obstructive sleep apnea of adult (Chronic) Paroxysmal atrial fibrillation (Acute) Peripheral vascular disease of lower extremity (Chronic) Polycythemia (Inactive) Physical Therapy Inpatient Evaluation/Re-Eval M1 PT/OT-IP Prior Functional Status Start: 03/21/19 13:10 Freq: NEEDED Status: Active Protocol: Document 03/21/19 11:05 AB (Rec: 03/21/19 13:21 AB [id number]) Medical Review Prior Functional Status Medical History Reviewed Yes Communication able to make needs known Mobility and Gait pt stated that she is modified independent with all mobilities and mostly uses a transport w/c for mobility. uses 2 hiking poles for ambulation to the toilet. stated that she started using her hiking poles also for going down the ramp and has been seeing PT 2x/week and in there, she has been ambulate ~ 80 ft using 4WW. Social History Household Members spouse Living Arrangements House Number of Floors (Floors) One Floor Number of Stairs To Enter/Railing? ramp to enter and ramp inside the house Home Environment Standard Height Toilet,Walk in Shower Home Equipment Shower Seat without Backrest, Hand Held Shower Additional Social History Comment pt has the shower chair against the wall pt stated that she also has a bidet; sleeps on her recliner M2 PT-IP Current Condition Start: 03/21/19 13:10 Freq: NEEDED Status: Active Protocol: Document 03/21/19 11:05 AB (Rec: 03/21/19 13:21 AB [id number]) Physical Therapy Current Condition Current Condition Evaluation Date 03/21/19 Treatment Diagnosis UTI; acute respiratory failure ; difficulty in walking Onset Date 03/21/2019 M3 PT-IP Subjective Start: 03/21/19 13:10 Freq: NEEDED Status: Active Protocol: Document 03/21/19 11:05 AB (Rec: 03/21/19 13:21 AB [id number]) Subjective Physical Therapy Visit Type Type Initial Evaluation Visit Start Time 11:05 Visit Stop Time 11:30 Total Visit Minutes 25 Number of COLLEGE ATHLETE Visits 0 Physical Therapy Visit Comments Patient Comments pt agreeable to do PT Therapy Pain Assessment Pain When Pain Assessed At Rest Pain Present Pain Present Pain Reported Location Bilateral Back Intensity 4 Scale Used Numeric (1 - 10) Pain Management Techniques Re-positioning M4 PT-IP Mobility and Gait Start: 03/21/19 13:10 Freq: NEEDED Status: Active Protocol: Document 03/21/19 11:05 AB (Rec: 03/21/19 13:21 AB [id number]) PT-Transfer Assessment Sit to and From Stand Sit to and from Stand Standby Assistance Equipment Transfer Assistive Device Gait Belt Orthotic/Prosthetic Devices or Brace: No Comments Mobility Comments nurse just transferred pt out of the bed and into the chair. Bed mobility not tested and pt stated that she sleeps on a recliner at home. Pt completed sit to stand from chair SBA and ambulated in room using FWW SBA to CGA and cues. pt sat back on the chair. positioned pt on chair . call light and table placed within reach. Left pt with spouse. Gait Assessment Gait Gait Assistance Required: Standby Assistance,Contact Guard Assist Distance (Feet) 20 Able to Maintain Weight Bearing Status Yes During Gait Assistive Devices Assistive Device Gait Belt,Front Wheeled Walker Orthotic/Prosthetic Devices or Brace: No Gait Deviations General Gait Pattern Antalgic,Decreased Stride Length,Decreased Feet Clearance Factors Limiting Gait Function Factors Limiting Gait Function Decreased Activity Tolerance, Decreased Strength,Pain,Poor Balance,Poor Safety Awareness, Respiratory Distress Comments Gait Comments pt presents with antalgic gait step to gait. pt was limited with ambulation even prior to hospitalization and has been uses a w/c most of the time. PT-Balance Assessment Sitting Balance and Reactions Static Sitting Balance Ability Good Dynamic Sitting Balance Ability Good Standing Balance and Reactions Static Standing Balance Ability Fair Dynamic Standing Balance Ability Fair Device Used FWW M5 PT-IP Objective Assessments Start: 03/21/19 13:10 Freq: NEEDED Status: Active Protocol: Document 03/21/19 11:05 AB (Rec: 03/21/19 13:21 AB [id number]) Orientation Orientation/Cognition Level of Alertness Alert Orientation Name,Age,Birthday,Month,Date, Year,Day of Week,Place, Situation Language Function Ability No Deficits Noted Safety Awareness Understands Safety Issues Memory Description No Deficits Noted Gross Range of Motion Lower Extremity ROM Assessment Within Functional Limits Strength Lower Extremity Strength Assessment Right Impaired Knee 3+/5 Coordination Assessment Gross Coordination Gross Coordination WNL Sensation Assessment Sensation Gross Sensation WNL Muscle Tone Muscle Tone WNL Yes M6 PT-IP Treatment Start: 03/21/19 13:10 Freq: NEEDED Status: Active Protocol: Document 03/21/19 11:05 AB (Rec: 03/21/19 13:21 AB [id number]) Physical Therapy Treatment Education Education Provided Safety M7 PT-IP Assessment and Plan Start: 03/21/19 13:10 Freq: NEEDED Status: Active Protocol: Document 03/21/19 11:05 AB (Rec: 03/21/19 13:21 AB [id number]) PT Summary Assessment and Plan Potential Rehabilitation Potential Good Status of Condition at Evaluation Stable Summary Impairments Pain,ROM,Strength,Balance,Bed Mobility,Transfers,Gait, Activity Tolerance Assessment Summary pt requiring SBA to CGA with ambulation using FWW. pt has decrease activity tolerance affecting mobility but pt stated that she has been mostly using a transport w/c at home and is limited with ambulation prior to hospitalization. d/c plan is home and spouse to assist. pt will continue with her outpt PT. Goals Transfer Goal Independent,Cane,Four Wheeled Walker Gait Goal Independent,Cane,Four Wheel Walker Gait Distance 50 Other Goals ambulation using bilaterl hiking poles/4WW ~ 80 ft SBA Days to Meet Goals 5 Frequency of Treatment Frequency Of Treatment Once a Day Treatment Plan Physical Therapy Treatment Plan Bed Mobility Training,Transfer Training,Gait Training, Therapeutic Exercise,Balance Retraining,Discharge Planning, Hot or Cold Pack,Neuromuscular Re-ed Recommendations To Nursing Amount of Assist Needed 1 Person Assist Discharge Recommendations PT Discharge Recommendations Home with Assistance, Outpatient PT
[2019-03-21] MEDS: THYROID, PORK 30 MG TABLET 90 MG PO (12:05)
[2019-03-21] MEDS: NYSTATIN POWDER 15GM 1 APPLIC TOP ×2 (12:09→20:06)
--- NOTE | 2019-03-21 12:25 | PC.NURSE ---
Day Shift- Pt A&OX4, able to make needs known using call light. Pt OOB to BSC with 2PA using walker. Pt unable to get herself from to the edge of the bed, needed 2PA to slide her towards edge of bed. Pt states her back and BLE are stiff. Pt settled back into bed. Voided qs. denies any urinary burning/pain. At 1000, pt assisted from bed to recliner chair, pt states she sleeps in a recliner chair at home. OOB with 2PA, again pt had trouble moving herself from a sitting position towards the edge of bed on the left side of the bed rather than the right side. After settling in chair, pt stated feeling much better and pt became more interactive, no facial grimacing or trying to reposition herself in bed making slight adjustments. PT was in to assess pt after getting pt to chair. Pt's Vitaly in to see pt as well. Pt requested probiotic while on antibiotics. Per Dr. Gregory request to give pt [place] yogurt which was done for lunch. Pt wanted steven wraps off, stated hurting BLE, this RN had previously re-wrapped BLE without relief. Therefore steven wraps removed around 1000 per pt request.
--- NOTE | 2019-03-21 12:45 | CM.DANOTE ---
Addendum entered by Yaneth Flood LPN 03/21/19 13:39: Met with pt and her Vitaly, as planned. Introduced self and role. Pt states she is feeling so much better than she did earlier today after MARYA Cooper brought in a bariatric recliner chair for pt. Pt confirms she sleeps in a recliner at home and that the hospital bed was not working well for her. Pt clarifies her home situation. She and Vitaly live on [address] in a single level home. Ramp to entry. She gets about primarily with a transport chair and uses her feet to propel herself. She uses 2 hiking poles the rest of the time and says she has been improving her distance with them while she has been in [facility]PT PT [place]. (is still currently in the OUTPT program). PCP: Martha Shearer. PT/OT have been ordered. Pt says PT was in to see today (the note is not yet available in the EMR). Vitaly will be rooming in tonight in anticipation of a possible d/c home tomorrow. Pt has talked with Dr. Gregory re this and says she is hopeful she will be able to go and that she is feeling much better since getting the IV antibiotics. Hank does have a history of bilateral total knee surgeries at about 10 years ago. She was at [facility] last summer for an extensive stay and at that time needed recovery at [facility]. P: will be check in with pt again tomorrow and follow prn for needs. Vitaly notes that is will need to be helped into their car at d/c. Priority board pass will be provided [place] of [place]. Original Note: Discharge Planning/Care Management DCP: assessment: case received, EMR reviewed. Discussed in Team Rounds. Pt is a 68 year old female who admitted early this mornin to care of hospitalist team. Admission status: INPT: confirmed by HERVE Elizondo Payer: Chivo NOGUERA. Pt is being treated for community acquired pneumonia and UTI. She carries multiple medical comorbidities and in the setting of morbid obesiy: wt 356 lbs. Will meet with pt today to continue the dcplanning assessment process. CM Discharge Assessment Start: 03/21/19 12:44 Freq: Status: Active Protocol: Document 03/21/19 12:44 ITV (Rec: 03/21/19 12:45 ITV [id number]) Discharge Planning Assessment Advance Directives? No History Provided By Medical Record Prior Living Arrangements House Household Members spouse Is patient alert and oriented? Yes White-board Updated in Patient Room with Yes name and ext. # of Mobile Service Rv Technician Review Status In Process
--- NOTE | 2019-03-21 12:59 | PM.CHAP ---
patient requested visit. on 03/20/2019 she was lively and alert. Today 03/21/2019 she was drowsy and non-communicative. Her daughter was with her and remarked about the sudden change.CHRIS
--- NOTE | 2019-03-21 13:04 | PM.CHAP ---
previous note in error. Pt alert and happy to have company.
--- NOTE | 2019-03-21 14:36 | OT.IP.EVAL ---
Current Diagnoses Obstructive sleep apnea (adult) (pediatric) (03/21/19) Past Medical History (Last Updated 03/21/19 @ 04:37 by CAROLINE Castro) History of pulmonary embolism (Acute) Hypertension (Acute) Hypothyroidism (Acute) Morbid obesity with body mass index (BMI) greater than or equal to 50 (Chronic) Obstructive sleep apnea of adult (Chronic) Paroxysmal atrial fibrillation (Acute) Peripheral vascular disease of lower extremity (Chronic) Polycythemia (Inactive) Surgical History (Last Updated 03/21/19 @ 04:37 by CAROLINE Castro) History of bilateral knee replacement (Acute) Occupational Therapy Inpatient Evaluation/Re-Eval M1 PT/OT-IP Prior Functional Status Start: 03/21/19 13:10 Freq: NEEDED Status: Active Protocol: Document 03/21/19 14:36 PJSarah (Rec: 03/21/19 17:31 PJSarah [id number]) Medical Review Prior Functional Status Medical History Reviewed Yes Diet/Fluid Consistency Regular Communication WNL Mobility and Gait Pt states she is modified independent with mobility using a transport w/c that she pushes with her feet. She uses 2 hiking poles for ambulation from bathroom doorway to the toilet and for other very short household distances including going down her ramp. She has been going to PT 2x/week where she has ambulated up to 80 ft using 4WW. Activities of Daily Living and IADL's Pt states she was independent with seated grooming, dressing (does not usually wear socks and uses slip on shoes), seated shower and toileting using a bidet. 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 Pt drives herself to P.T. appointments but has assist with getting walker in/ out of car. 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 Social History Household Members spouse Living Arrangements House Number of Floors (Floors) One Floor Number of Stairs To Enter/Railing? ramp to enter Home Environment Standard Height Toilet,Walk in Shower,Ramp,Bidet Home Equipment Four Wheel Walker,Straight Cane,Shower Seat without Backrest,Hand Held Shower,Long Handled Sponge,Long Handled Shoe Horn,Dishwasher,Sock Aid Additional Social History Comment pt has transport w/c, 2 hiking poles; pt sleeps in recliner M2 OT-IP Current Condition Start: 03/21/19 13:49 Freq: Status: Active Protocol: Document 03/21/19 14:36 PJM (Rec: 03/21/19 17:31 PJ [id number]) Occupational Therapy Current Condition Current Condition Evaluation Date 03/21/19 Treatment Diagnosis assess self care; DX: UTI, CAP, acute resp failure Diagnosis Onset Date 03/20/19 Post Operative Precautions Other Precautions fall risk M3 OT- IP Subjective and Pain Start: 03/21/19 13:49 Freq: Status: Active Protocol: Document 03/21/19 14:36 PJM (Rec: 03/21/19 17:31 PJ [id number]) OT- Subjective Occupational Therapy Visit Type Type Initial Evaluation Visit Start Time 14:15 Visit Stop Time 14:36 Total Visit Minutes 21 Notes here this session Occupational Therapy Visit Comments Patient Comments I don't think I need any OT this time. Patient/Caregiver Goals to go home and resume out pt P.T. to increase mobility; to continue to lose weight OT Pain Assessment Pain When Pain Assessed After Treatment Pain Present Pain Present Denied Pain M4 OT- IP ADL's Start: 03/21/19 13:49 Freq: Status: Active Protocol: Document 03/21/19 14:36 PJM (Rec: 03/21/19 17:31 PJM [id number]) OT [id number] General Evaluation Self-Feeding Ability Independent OT ADL-Grooming General Evaluation Grooming Ability Independent Comments OT Grooming Comments seated, once all items within reach OT ADL-Oral Care General Eval Oral Care Ability Independent Devices Oral Care Devices Toothbrush Comments Oral Care Comments seated, once all items within reach OT ADL-Dressing General Eval Upper Body Dressing Ability Independent Lower Body Dressing Ability Standby Assistance Comments OT Dressing Comments pt has lower body dressing equipt(customer support advisor, sock aid,long shoe horn) and knows how to use it from time spent in SNF last year OT ADL-Toileting General Evaluation Toileting Ability Independent Comments OT Toileting Comments at home with bidet OT ADL-Bathing Comments OT Bathing Comments no new deficits identified that would interfere; has appropriate bathroom safety equipt M5 OT- IP IADL's Start: 03/21/19 13:49 Freq: Status: Active Protocol: Document 03/21/19 14:36 PJM (Rec: 03/21/19 17:31 [facility] [id number]) OT-Instrumental Activities of Daily Living Deficits IADL Deficits Identified Deficits Home Safety Awareness Awareness of Need for Assistance at Home Good Awareness Ability to Problem Solve Emergency Able to Problem Solve Situations Medication Management Medication Management No Deficits Identified Money Management Money Management No Deficits Identified Meal Preparation Meal Preparation Caregiver Provides Assist Rn Triage Rn Triage Caregiver Provides Assist Driving Driving Caregiver Provides Assist Driving Comments until pt able M6 OT- IP Functional Cognition Start: 03/21/19 13:49 Freq: Status: Active Protocol: Document 03/21/19 14:36 PJM (Rec: 03/21/19 17:31 [facility] [id number]) Cognitive Factors Limiting Selfcare Function Cognitive Ability Level of Alertness Alert Patient Orientation Name,Age,Birthday,Month,Date, Year,Day of Week,Place, Situation Attention Span Ability Capable of Focused Attention, Capable of Sustained Attention Ability to Follow Commands Able to Follow Multi-Step Commands Memory Description No Deficits Noted Safety Awareness No Deficits Noted Problem Solving Ability No deficits Noted OT- Vision and Hearing OT- Hearing Assessment OT- Hearing Assessment WFL OT- Vision Assessment Visual Acuity WFL,Glasses All The Time M7 OT- IP Mobility and Balance Start: 03/21/19 13:49 Freq: Status: Active Protocol: Document 03/21/19 14:36 PJM (Rec: 03/21/19 17:31 [facility] [id number]) OT-Transfer Assessment Comments Mobility Comments pt seen up in recliner; see P. T. notes OT- Gait Assessment Comments Gait Ability Comments see P.T. notes OT- Balance Assessment Sitting Balance and Reactions Static Sitting Balance Ability Good Comments Other Balance Tests/Deviations/Treatment see P.T. notes : M8 OT- IP Objective Assessments Start: 03/21/19 13:49 Freq: Status: Active Protocol: Document 03/21/19 14:36 PJM (Rec: 03/21/19 17:31 [facility] [id number]) OT Gross Range of Motion Upper Extremity Range of Motion Assessment Within Functional Limits OT Strength Upper Extremity Strength Assessment Within Functional Limits OT- Coordination Assessment Comments Coordination Comments BUE WNL OT-Muscle Tone Assessment Muscle Tone WNL Yes OT Sensation Assessment Comments Summary Comments pt has intermittent numbness in fingertips from polycythemia vera M9 OT- IP Assessment and Plan Start: 03/21/19 13:49 Freq: Status: Active Protocol: Document 03/21/19 14:36 PJSarah (Rec: 03/21/19 17:31 PJ [id number]) OT Summary Assessment and Plan Potential Analytic Complexity at Evaluation Low Summary Assessment Summary Low complexity OT assessment completed on this 68 yr old woman admitted with dx of UTI, CAP, acute respiratory failure with co-morbidity of obesity (356#). Pt appears to be at her baseline level of self care function as described above. Pt does not feel she needs any OT services at present, and no OT goals identified for this admission. Pt plans to d/c home with assist from her when medically stable and clears P.T. Frequency of Treatment Frequency Of Treatment Discharge Discharge Recommendations OT Discharge Recommendations Home with Assistance Home Equipment Needs none
[2019-03-21] MEDS: LACTOBACILLUS ACIDOPHILUS TABLET 1 EACH PO (16:41)
[2019-03-21] MEDS: dilTIAZem CD 180 MG CAP 360 MG PO (20:06)
[2019-03-21] MEDS: WARFARIN 5 MG TABLET PO (20:06)
[2019-03-22] MEDS: SODIUM CHLORIDE 0.9% 1,000 ML 100 ML IV (00:05)
[2019-03-22] MEDS: CEFTRIAXONE 2 GM/50 ML FROZ.PIGGY IV (03:27)
[2019-03-22 04:36] VITALS: BP 133/67; PULSE 74; RESP 22; TEMP 36.6; O2SAT 92
[2019-03-22] MEDS: AZITHROMYCIN 500 MG in DEXTROSE 5% IN WATER 250 ML IV (04:45)
[2019-03-22 05:44] LABS: Basophils Absolute Auto 0 /uL (0-100); Basophils Percent Auto 0.5 % (0-2); Eosinophils Absolute Auto 100 /uL (0-450); Hematocrit 42.5 % (36-46); Hemoglobin 13.8 g/dL (12.0-16.0); Lymphocytes Absolute Auto 800 /uL (1100-4500); Lymphocytes Percent Auto 15.1 % (25-40); Mean Corpuscular HGB Conc 32.4 % (30-36); Mean Corpuscular Hemoglobin 23.3 PG (26-34); Mean Corpuscular Volume 71.7 fL (80-100); Monocytes Absolute Auto 900 /uL (0-900); Monocytes Percent Auto 16.2 % (3-14); Neutrophils Absolute Auto 3500 /uL (1500-7000); Neutrophils Percent Auto 67.2 % (50-75); Platelet Count 450 X10^3/uL (150-400); Red Blood Cell Count 5.93 X10^6/uL (4.0-5.2); White Blood Cell Count 5.2 X10^3/uL (4.5-11.0)
[2019-03-22 05:47] LABS: Add Manual Diff / Slide Review SLIDE REVIEW
[2019-03-22 06:10] LABS: BUN Creatinine Ratio 25.7 (6-22); Blood Urea Nitrogen 18 mg/dL (7-17); Calcium 8.6 mg/dL (8.4-10.2); Carbon Dioxide 27 mmol/L (22-32); Chloride 103 mmol/L (98-107); Estimated Glomerular Filt Rate > 60.0 mL/min (>60); Glucose 123 mg/dL (80-110); HEMOLYSIS < 15 (0-50); Magnesium 2.1 mg/dL (1.6-2.3); Potassium 3.8 mmol/L (3.4-5.1); Sodium 137 mmol/L (137-145)
[2019-03-22] MEDS: THYROID, PORK 30 MG TABLET 90 MG PO (06:17)
[2019-03-22 06:27] LABS: INR 2.1 (0.9-1.3); Prothrombin Time 24.9 SECONDS (10.1-12.7)
[2019-03-22 06:38] LABS: Procalcitonin 4.82 ng/mL (<0.5)
[2019-03-22 07:13] LABS: Anisocytosis 1+
[2019-03-22 07:14] LABS: Hypochromasia 1+; Ovalocytes 1+
--- NOTE | 2019-03-22 07:58 | CM.DPC ---
DCP: continued: OT/PT notes are reviewed which do support pt's goal of returning home with her husbands prn support and continuation of outpt PT. Will follow prn.
[2019-03-22 08:30] VITALS: BP 127/64; PULSE 82; RESP 16; TEMP 36.1; O2SAT 94
[2019-03-22 08:32] VITALS: BP 127/64; PULSE 80
[2019-03-22] MEDS: LACTOBACILLUS ACIDOPHILUS TABLET 1 EACH PO (08:32)
[2019-03-22] MEDS: LISINOPRIL 10 MG TABLET 30 MG PO (08:32)
[2019-03-22] MEDS: METOPROLOL ER 50 MG TABLET PO (08:35)
--- NOTE | 2019-03-22 09:01 | P.DS_ITS ---
History of Present Illness History of Present Illness Date Patient Seen: 03/22/19 Time Patient Seen: 08:20 Chief complaint: Fever, painful urination Narrative: As per CAROLINE Castro: Ms. Ewa Emerson is a 68-year-old female patient with a history significant for paroxysmal atrial fibrillation, prior pulmonary embolism on warfarin, polycythemia vera, hypothyroidism and obstructive sleep apnea on CPAP who presents to the ER with complaints of fevers chills and dysuria. The patient states her symptoms began over 24 hours ago. She lives on [facility] and attempted to go to the clinic yesterday which was closed due to inclement weather. Her symptoms were progressive and she called EMS tonight. Patient reports subjective fever with chills, hematuria and dysuria. She was also found to be hypoxemic by EMS with an SpO2 at 88 on room air. Patient has a pulse oximeter at home and states she is typically 94-95%. She reports chronic cough related to lisinopril that is unchanged, dry and nonproductive. She does endorse nasal congestion no sore throat. She denies headache or dizziness. She has no chest pain and denies palpitations. She denies abdominal pain nausea or vomiting. She reports loose bowel movements but not diarrhea and has urinary symptoms of painful urination with hematuria. She has bilateral lower extremity venous stasis dermatitis with bilateral lower extremity edema. Patient reports will wake up in the morning with numbness bilateral hands that resolves. She states she is ambulatory but frequently use wheelchair due to deconditioning is working with physical therapy. Upon arrival to the ER the patient has a temperature of 99.5?, is tachycardic at 101, pressure 152/57, respiratory rate of 26 saturating 93% on 2 liters/minute nasal cannula. A chest x-ray is obtained which shows a possible left lower lobe pneumonia, normal cardiac silhouette. On laboratory analysis the patient has white count 9.2, hemoglobin of 15.3, hematocrit of 45.2 and platelets of 584. Her electrolytes within range with a potassium of 4.0 and magnesium 2.1. Lactic acid is normal at 0.8 has elevated procalcitonin 2.5 8. Her totals CK is less than 20 and her troponin is 0.0 3 3. Her BN this is a 164. Her INR is therapeutic at 2.4. On urinalysis she has 1 + protein, trace ketone S, 3+ blood with 10 and 30 WBCs, many bacteria is positive for nitrates and leukocyte esterase. In the ER the patient received 1 g of ceftriaxone IV in the patient is admitted to the medicine service for symptomatic UTI with hematuria and acute respiratory failure with hypoxemia. Discharge Providers Provider Date of admission: 03/21/19 03:06 Discharge Date: 03/22/19 Primary care physician: Martha Shearer PA-C Consults: 03/21/19 04:07 Consult to Dietitian, Adult Routine Comment: Reason For Exam: Morbid obesity, BMI 58.4 Consult to Occupational Therapy Evaluate & Treat Comment: Morbid obesity, BTKA, deconditioned Physician Instructions: Evaluate and treat 03/21/19 04:08 Consult to Physical Therapy Evaluate & Treat Comment: Morbid obesity, BTKA, deconditioned Physician Instructions: Evaluate and Treat 03/21/19 04:10 Consult to Respiratory Therapy Evaluate & Treat Comment: Acute respiratory failure with hypoxemia, GENO Physician Instructions: Evaluate and treat 03/21/19 04:41 Consult to Dietitian, Adult Routine Comment: Reason For Exam: Reflexed from Admission Consult to Pastoral Services Routine Comment: Per patient request Discharge provider: Cj Gregory DO Summary Hospital Course Discharge Diagnosis: 1. Acute respiratory failure with hypoxemia, probable community-acquired pneumonia, present on admission, active. 2. Acute Urinary tract infection with hematuria, present on admission, active. 3. Paroxysmal atrial fibrillation, chronic, sinus rhythm on admission, stable 4. Long-term anticoagulation, chronic, stable 5. Essential Hypertension, chronic, present on admission, active. 6. Polycythemia vera, chronic, present on admission, stable. 7. Obstructive sleep apnea on CPAP, chronic, stable. 8. Hypothyroidism, chronic, stable Hospital Course: This is a 68-year-old female patient who was brought to the ER by EMS from [facility] with acute respiratory failure with hypoxemia and acute urinary tract infection with hematuria. The patient improved more quickly than expected after initiation of antibiotics, as her urinary symptoms markedly improved and she was no longer requiring supplemental oxygen. She was deemed stable for discharge the following day. 1. Acute respiratory failure with hypoxemia, probable community-acquired pneumonia, present on admission, active. -patient with no prior history of pulmonary disease, has a home pulse ox and reports typical saturation of 94-95%. She reports a chronic dry and nonp roductive TONY cough that is unchanged. -upon arrival of EMS at home patient's O2 sat was reportedly 88% on room air. O2 saturation improveed on 2 L of oxygen nasal cannula to 93-96%. By discharged she was not requiring supplemental O2. -on upon arrival to the ER patient is tachypneic at 26 saturating 93% on 2 liters/minute with a PF ratio of 246. -history of prior pulmonary embolism related to atrial fibrillation currently therapeutic on warfarin. No complaints chest pain no change in cough. Therapeutic INR makes PE highly unlikely. -12 lead EKG shows sinus rhythm ventricular rate of 97 with no ectopy, ST or T- wave changes right indication of right ventricular strain. -chest x-ray reveals fluffiness left base, no wheezing, coarseness or crackles appreciated on auscultation, exam limited by patient's obesity. -ordered ceftriaxone 2 g IV daily and azithromycin 500 mg IV daily. Will dis charge on augmentin as this will cover pneumonia and UTI. -respiratory panel negative 2. Acute Urinary tract infection with hematuria, present on admission, active. -patient with urinary symptoms for approximately 1 day with painful urination and hematuria. History of chronic UTIs as a child but not in adult life. -associated symptoms of fevers chills but no nausea vomiting. -urinalysis positive for 3+ blood, WBCs, nitrites and leukocyte esterase with many bacteria, reflexed to culture. Lactic acid is 0.8 and Procalcitonin is 2.58. -ordered ceftriaxone 2 g IV daily, higher dose for pulmonary treatment. -patient mildly dehydrated with BUN creatinine ratio of 27, IV normal saline 100 cc/hour was given -discharge on augmentin as above. Cultures grew E. Coli which is vences-sensitive. 3. Paroxysmal atrial fibrillation, chronic, sinus rhythm on admission, stable -patient without complaints of chest pain or palpitations during admission. -sinus rhythm on EKG without ectopy ST or T-wave changes. -continue patient's home regimen of diltiazem 360 mg daily and metoprolol 50 mg daily. 4. Long-term anticoagulation, chronic, stable -INR on admission is 2.4. -continue home regimen of warfarin 5 mg daily. 5. Essential Hypertension, chronic, present on admission, active. -will continue patient's home regimen of lisinopril 30 mg daily. She also takes diltiazem 360 mg of metoprolol 50 mg both daily for control of atrial fibrillation. 6. Polycythemia vera, chronic, present on admission, stable. -patient evaluated by Dr. 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 -placed on hydroxyurea which the patient could not tolerate and discontinued. -no acute treatment is indicated this time. 7. Obstructive sleep apnea on CPAP, chronic, stable. -patient use CPAP at home and equipment came with the patient.. -respiratory therapy to consult, evaluate and treat. -CPAP per RT protocol with patient's home device. 8. Hypothyroidism, chronic, stable -admission labs show TSH is 2.31. -continue patient's home regimen of [place] thyroid 90 mg daily. Exam Vital Signs (past 8 hours): - 03/22/19 04:36 03/22/19 08:32 Temperature 97.8 F Pulse Rate 74 80 Respiratory Rate 22 Blood Pressure 133/67 127/64 Pulse Oximetry 92 Oxygen Delivery Method Room Air Oxygen Flow Rate 2 Narrative Exam Narrative: GENERAL APPEARANCE: well developed, morbidly obese female, congested appearing but in no acute distress, now off supplemental O2. HEENT: Normocephalic, wears glasses, PERRLA, conjunctiva clear, sclera anicteric EOMs intact without nystagmus, no sinus tenderness to percussion, no rhinorrhea, mucous membranes are moist and pink without lesions or exudate. NECK/THYROID: neck supple, no JVD, no thyromegaly, trachea midline. LYMPH NODES: no cervical or supraclavicular lymphadenopathy. SKIN: [place], warm and dry, venous stasis dermatitis bilateral lower extremities HEART: regular rate and rhythm, S1-S2, 2/6 systolic murmur loudest at right upper sternal border, no rubs or gallops, brisk capillary refill, 1 to 2+ lower extremity edema LUNGS: Diminished on auscultation bilaterally, no coarseness crackles or wheezing, no cough present CHEST: Symmetrical movement, no accessory muscle use, good tidal volume. ABDOMEN: Soft, obese, dull to percussion, no l tenderness or guarding, no organomegaly, no flank or suprapubic tenderness, active bowel tones. BACK: Normal curvature, nontender to palpation, no CVA tenderness on percussion EXTREMITIES: moves all extremities, strength is 5/5 and symmetrical, no deformities or joint effusions. NEUROLOGIC: AAO x4, no focal neurologic deficits, sensation intact to light touch, hearing grossly normal to speech. PSYCH: Cooperative, linear thought process, appropriate with stable behavior Objective Labs Result Diagrams: 03/22/19 05:23 03/22/19 05:23 Labs: Laboratory Results - last 24 hr 03/21/19 03/21/19 03/21/19 08:10 08:10 08:10 WBC 6.9 RBC 5.98 H Hgb 13.9 Hct 42.7 MCV 71.4 L MCH 23.2 L MCHC 32.5 RDW 17.2 H Plt Count 495 H Neut % (Auto) 73.5 Lymph % (Auto) 9.2 L [place] % (Auto) 16.3 H Eos % (Auto) 0.7 L Baso % (Auto) 0.3 Neut # (Auto) 5100 Lymph # (Auto) 600 L [place] # (Auto) 1100 H Eos # (Auto) 100 Baso # (Auto) 0 Plt Morphology Comment RBC Morphology Hypochromasia Anisocytosis Ovalocytes PT INR Sodium 135 L Potassium 3.6 Chloride 102 Carbon Dioxide 29 BUN 17 Creatinine 0.70 Estimated GFR > 60.0 BUN/Creatinine Ratio 24.3 H Glucose 107 Calcium 8.8 Magnesium Troponin I 0.020 Procalcitonin 03/22/19 03/22/19 03/22/19 05:23 05:23 05:23 WBC 5.2 RBC 5.93 H Hgb 13.8 Hct 42.5 MCV 71.7 L MCH 23.3 L MCHC 32.4 RDW 17.0 H Plt Count 450 H Neut % (Auto) 67.2 Lymph % (Auto) 15.1 L [place] % (Auto) 16.2 H Eos % (Auto) 1.0 L Baso % (Auto) 0.5 Neut # (Auto) 3500 Lymph # (Auto) 800 L [place] # (Auto) 900 Eos # (Auto) 100 Baso # (Auto) 0 Plt Morphology Comment RBC Morphology See below Hypochromasia 1+ H Anisocytosis 1+ H Ovalocytes 1+ H PT 24.9 H INR 2.1 H Sodium Potassium Chloride Carbon Dioxide BUN Creatinine Estimated GFR BUN/Creatinine Ratio Glucose Calcium Magnesium Troponin I Procalcitonin 4.82 H 03/22/19 05:23 WBC RBC Hgb Hct MCV MCH MCHC RDW Plt Count Neut % (Auto) Lymph % (Auto) [place] % (Auto) Eos % (Auto) Baso % (Auto) Neut # (Auto) Lymph # (Auto) [place] # (Auto) Eos # (Auto) Baso # (Auto) Plt Morphology Comment RBC Morphology Hypochromasia Anisocytosis Ovalocytes PT INR Sodium 137 Potassium 3.8 Chloride 103 Carbon Dioxide 27 BUN 18 H Creatinine 0.70 Estimated GFR > 60.0 BUN/Creatinine Ratio 25.7 H Glucose 123 H Calcium 8.6 Magnesium 2.1 Troponin I Procalcitonin Discharge Plan Discharge Plan Patient Disposition: Home Discharge comment: You were admitted to the hospital with a urinary tract infection and possible pneumonia. Your urinary tract infection was not resistant to any antibiotics. You are being discharged on augmentin to complete 3 additional days for pneumonia. Please follow up with your primary care provider as previously scheduled. No other medication changes are necessary. Discharge orders & Medications Prescriptions: New amoxicillin-pot clavulanate 875-125 mg tablet 1 tab PO BID 3 Days Qty: 6 RF: 0 Continued ibuprofen [Advil Liqui-Gel] 200 MG capsule 600 mg PO QDAY Qty: 0 RF: 0 diltiazem HCl 360 mg Capsule,Extended Release 24 Hr 360 mg PO DAILY RF: 0 warfarin 5 mg Tablet 5 mg PO DAILY RF: 0 lisinopril 30 mg Tablet 30 mg PO DAILY RF: 0 thyroid (pork) [[place] Thyroid] 90 mg Tablet 90 mg PO DAILY RF: 0 metoprolol succinate 50 mg Capsule,Sprinkle,Er 24hr 50 mg PO DAILY RF: 0 (DME) Resmed Airsense 10 CPAP Qty: 1 RF: 0 Follow up/Referrals: Martha Shearer PA-C [Primary Care Provider] - Discharge Health Status Health Concerns: Community acquired pneumonia Urinary tract infection Multidrug resistant organism: No MDRO Diet/Activity/Treatments Diet: Diet as Tolerated Activity: As tolerated Visit Report/Discharge Packet Instructions: DI for Pneumonia -- Adult, DI for Urinary Tract Infection (UTI), How to Prevent Falls, How to Use Antibiotics Wisely Visit Report Forms: Patient Portal/API, Stroke Signs & Symptoms Discharge Data Primary Care Provider: Martha Shearer Discharges patient from system. Discharge Date/Time: 03/22/19 13:16 Quality VTE Deep Vein Thrombosis/Pulmonary Embolism Present on Admission: No
--- NOTE | 2019-03-22 09:46 | PT.IPTN ---
Current Diagnoses Obstructive sleep apnea (adult) (pediatric) (03/21/19) Physical Therapy Treatment Note M2 PT-IP Current Condition Start: 03/21/19 13:10 Freq: NEEDED Status: Active Protocol: Document 03/21/19 11:05 AB (Rec: 03/21/19 13:21 AB [id number]) Physical Therapy Current Condition Current Condition Evaluation Date 03/21/19 Treatment Diagnosis UTI; acute respiratory failure ; difficulty in walking Onset Date 03/21/2019 M3 PT-IP Subjective Start: 03/21/19 13:10 Freq: NEEDED Status: Active Protocol: Document 03/22/19 09:46 AB (Rec: 03/22/19 10:55 AB [id number]) Subjective Physical Therapy Visit Type Type Treatment Note Visit Start Time 09:46 Visit Stop Time 09:56 Total Visit Minutes 10 Number of MICRO COMPUTER DATA PROCESSOR Visits 0 Physical Therapy Visit Comments Patient Comments pt agreeable to do PT Therapy Pain Assessment Pain When Pain Assessed At Rest Location Bilateral Back Scale Used pain scale not stated Pain Management Techniques Re-positioning M4 PT-IP Mobility and Gait Start: 03/21/19 13:10 Freq: NEEDED Status: Active Protocol: Document 03/22/19 09:46 AB (Rec: 03/22/19 10:55 AB [id number]) PT-Transfer Assessment Sit to and From Stand Sit to and from Stand Standby Assistance,Contact Guard Assistance Equipment Transfer Assistive Device Gait Belt Transfer Ability Level of Assist Standby Assistance,Contact Guard Assistance,1 Person Assistance,Use of Upper Extremities Comments Mobility Comments pt sitting on chair. pt sleeps on a recliner at home and slept on chair last night here in the hospital. pt completed sit to stand SBA with 2 attempts. agreed to ambulate using 2 hiking poles and completed ~ 10 ft requiring SBA to occasional CGA and cues. pt rested. asked pt to ambulate again but refused. stated that she is going home later today and will be doing a lot of things at home. positioned pt on the chair. call light and table placed within reach. Gait Assessment Gait Gait Assistance Required: Standby Assistance,Contact Guard Assist Distance (Feet) 10 Assistive Devices Assistive Device Gait Belt Orthotic/Prosthetic Devices or Brace: No Gait Deviations General Gait Pattern Antalgic,Decreased Stride Length,Decreased Feet Clearance,Flexed Trunk,Step-to Gait Factors Limiting Gait Function Factors Limiting Gait Function Decreased Activity Tolerance, Decreased Strength,Pain,Poor Balance Comments Gait Comments pt used 2 hiking poles for ambulation. refer to mobility section for details M5 PT-IP Objective Assessments Start: 03/21/19 13:10 Freq: NEEDED Status: Active Protocol: Document 03/21/19 11:05 AB (Rec: 03/21/19 13:21 AB [id number]) Orientation Orientation/Cognition Level of Alertness Alert Orientation Name,Age,Birthday,Month,Date, Year,Day of Week,Place, Situation Language Function Ability No Deficits Noted Safety Awareness Understands Safety Issues Memory Description No Deficits Noted Gross Range of Motion Lower Extremity ROM Assessment Within Functional Limits Strength Lower Extremity Strength Assessment Right Impaired Knee 3+/5 Coordination Assessment Gross Coordination Gross Coordination WNL Sensation Assessment Sensation Gross Sensation WNL Muscle Tone Muscle Tone WNL Yes M6 PT-IP Treatment Start: 03/21/19 13:10 Freq: NEEDED Status: Active Protocol: Document 03/22/19 09:46 AB (Rec: 03/22/19 10:55 AB [id number]) Physical Therapy Treatment Education Education Provided Safety M7 PT-IP Assessment and Plan Start: 03/21/19 13:10 Freq: NEEDED Status: Active Protocol: Document 03/22/19 09:46 AB (Rec: 03/22/19 10:55 AB [id number]) PT Summary Assessment and Plan Potential Rehabilitation Potential Good Summary Impairments Pain,ROM,Strength,Balance, Sensation,Bed Mobility, Transfers,Gait,Activity Tolerance Progress Towards Goals Slow Progress due to Medical Issues,Slow Progress due to Activity Tolerance Assessment Summary pt requiring SBA to CGA with mobility and spouse will be able to assist pt. pt plans to go home later today. pt may go home when stable. Goals Transfer Goal Independent,Cane,Four Wheeled Walker Gait Goal Independent,Cane,Four Wheel Walker Gait Distance 50 Other Goals ambulation using bilaterl hiking poles/4WW ~ 80 ft SBA Days to Meet Goals 5 Frequency of Treatment Frequency Of Treatment Once a Day Treatment Plan Physical Therapy Treatment Plan Bed Mobility Training,Transfer Training,Gait Training, Therapeutic Exercise,Balance Retraining,Discharge Planning, Hot or Cold Pack,Neuromuscular Re-ed Recommendations To Nursing Amount of Assist Needed 1 Person Assist Discharge Recommendations PT Discharge Recommendations Home with Assistance, Outpatient PT
--- NOTE | 2019-03-22 10:26 | PC.NURSE ---
Addendum entered by Allison Cunningham R.N. 03/22/19 13:14: Discharge summary packet reviewed with pt and her , no voiced concerns. Pt's Vitaly picked up antibiotic prescription from [facility]. No voiced concerns during discharge paperwork review. Pt has all belongings. Pt left unit via wheelchair in no distress at 1316 with SECURITY INTELLIGENCE ANALYST escort. Vitaly present to drive pt home. Addendum entered by Allison Cunningham R.N. 03/22/19 10:36: At 1035, pt given her pill box with several different pills divided in pill box that was stored in pharmacy. Original Note: Day Shift- Pt A&OX4, states is ready to g o home, discharge order per Dr. Gregory. Pt's Vitaly present to drive pt home back to [facility]. Pt given priority boarding pass for [address] to [facility]. Pt states has all belongings, pt's pill box being retrieved from Pharmacy. Plan fo rpt to discharge around 1230.
[2019-03-22 11:27] VITALS: BP 141/68; PULSE 79; RESP 18; TEMP 37.1; O2SAT 93
== END 2019-03-22 13:16 | disposition home or self-care (01) ==
LOC: ED 03:07 → AC 09:31
PROVIDERS: Internal Medicine; Admitting Provider Nurse Practitioner Adult Health; Emergency Provider Emergency Medicine; Family Provider Physician Assistant Medical; PCP Physician Assistant Medical; Visit Provider Nurse Practitioner Adult Health
DX: J96.01 Acute respiratory failure with hypoxia (principal); R50.9 Fever, unspecified; N39.0 Urinary tract infection, site not specified; Z68.43 Body mass index [BMI] 50.0-59.9, adult; I48.0 Paroxysmal atrial fibrillation; E66.01 Morbid (severe) obesity due to excess calories; R31.9 Hematuria, unspecified; D45 Polycythemia vera; E03.9 Hypothyroidism, unspecified; I10 Essential (primary) hypertension; G47.33 Obstructive sleep apnea (adult) (pediatric); Z79.01 Long term (current) use of anticoagulants; Z86.711 Personal history of pulmonary embolism
CPT/HCPCS: 36415; 71045; 80048; 80053; 81001; 82550; 83605; 83735; 83880; 84145; 84443; 84484; 85025; 85610; 87040; 87077; 87086; 87186; 87502; 87633; 93005; 94660; 94760; 94762; 96361; 96365; 97116; 97161; 97165; 99284; G0378; J0696

== ENCOUNTER → 2020-07-09 12:02 | Outpatient (CLI) | payer MEDICARE, SELFPAY ==
[2019-03-21 04:26] VITALS: BMI 57.6
[2020-07-09 18:59] LABS: Add Manual Diff / Slide Review NO; Basophils Absolute Auto 100 /uL (0-100); Basophils Percent Auto 1.3 % (0-2); Eosinophils Absolute Auto 300 /uL (0-450); Eosinophils Percent Auto 3.8 % (2-4); Hematocrit 40.5 % (36-46); Hemoglobin 12.6 g/dL (12.0-16.0); Lymphocytes Absolute Auto 900 /uL (1100-4500); Lymphocytes Percent Auto 12.5 % (25-40); Mean Corpuscular HGB Conc 31.1 % (30-36); Mean Corpuscular Hemoglobin 19.2 PG (26-34); Mean Corpuscular Volume 61.7 fL (80-100); Monocytes Absolute Auto 700 /uL (0-900); Monocytes Percent Auto 10.2 % (3-14); Neutrophils Absolute Auto 5100 /uL (1500-7000); Neutrophils Percent Auto 72.2 % (50-75); Platelet Count 670 X10^3/uL (150-400); Red Blood Cell Count 6.56 X10^6/uL (4.0-5.2)
[2020-07-09 19:23] LABS: Hypochromasia 1+; Microcytosis 2+; Polychromasia 1+
[2020-07-09 19:24] LABS: Platelet Estimate Increased on smear; Platelet Morphology Comment NOTE
== END ==
PROVIDERS: Family Provider Physician Assistant Medical; PCP Family Medicine; Visit Provider Internal Medicine
DX: D75.1 Secondary polycythemia (principal)
CPT/HCPCS: 85025

== ENCOUNTER → 2020-08-11 12:00 | Outpatient (CLI) | payer MEDICARE, SELFPAY ==
[2020-08-11 11:38] VITALS: BMI 57.6
== END ==
PROVIDERS: Family Provider Physician Assistant Medical; PCP Family Medicine; Visit Provider Physician Assistant
DX: N39.0 Urinary tract infection, site not specified (principal)
CPT/HCPCS: 87086

== ENCOUNTER → 2020-08-21 12:16 | Outpatient (CLI) | payer MEDICARE, SELFPAY ==
[2020-08-11 11:38] VITALS: BMI 57.6
[2020-08-21 19:55] LABS: Basophils Absolute Auto 100 /uL (0-100); Eosinophils Absolute Auto 200 /uL (0-450); Hematocrit 42.1 % (36-46); Hemoglobin 13.1 g/dL (12.0-16.0); Lymphocytes Absolute Auto 800 /uL (1100-4500); Mean Corpuscular Hemoglobin 18.9 PG (26-34); Monocytes Absolute Auto 700 /uL (0-900); Monocytes Percent Auto 9.8 % (3-14); Neutrophils Absolute Auto 5200 /uL (1500-7000); Neutrophils Percent Auto 74.2 % (50-75); Platelet Count 551 X10^3/uL (150-400); Red Cell Distribution Width 20.3 % (11.6-14.8)
[2020-08-21 20:00] LABS: Add Manual Diff / Slide Review SLIDE REVIEW
[2020-08-21 20:52] LABS: Anisocytosis 3+; Hypochromasia 2+; Microcytosis 3+; Spherocytes 1+
== END ==
PROVIDERS: Family Provider Physician Assistant Medical; PCP Family Medicine; Visit Provider Internal Medicine
DX: D75.1 Secondary polycythemia (principal)
CPT/HCPCS: 85025

== ENCOUNTER → 2020-09-28 13:26 | Outpatient (CLI) | payer MEDICARE, SELFPAY ==
[2020-08-11 11:38] VITALS: BMI 57.6
[2020-09-28 19:21] LABS: Add Manual Diff / Slide Review NO; Basophils Absolute Auto 0 /uL (0-100); Basophils Percent Auto 0.6 % (0-2); Eosinophils Absolute Auto 300 /uL (0-450); Eosinophils Percent Auto 3.6 % (2-4); Hematocrit 42.6 % (36-46); Hemoglobin 13.4 g/dL (12.0-16.0); Lymphocytes Absolute Auto 900 /uL (1100-4500); Mean Corpuscular HGB Conc 31.5 % (30-36); Mean Corpuscular Hemoglobin 19.3 PG (26-34); Mean Corpuscular Volume 61.1 fL (80-100); Monocytes Absolute Auto 700 /uL (0-900); Monocytes Percent Auto 9.3 % (3-14); Neutrophils Absolute Auto 5200 /uL (1500-7000); Neutrophils Percent Auto 73.5 % (50-75); Platelet Count 431 X10^3/uL (150-400); Red Cell Distribution Width 20.8 % (11.6-14.8); White Blood Cell Count 7.1 X10^3/uL (4.5-11.0)
[2020-09-28 19:25] LABS: Red Blood Cell Count 6.98 X10^6/uL (4.0-5.2)
[2020-09-28 20:00] LABS: Thyroid Stimulating Hormone 2.35 uIU/mL (0.47-4.68)
[2020-09-28 20:12] LABS: Platelet Estimate Increased on smear
[2020-09-28 20:13] LABS: Anisocytosis 1+; Hypochromasia 1+; Microcytosis 2+; Poikilocytosis 1+
[2020-09-30 06:18] LABS: Triiodothyronine T3 Total 79 ng/dL (71-180)
== END ==
PROVIDERS: Internal Medicine; Family Provider Physician Assistant Medical; PCP Family Medicine; Visit Provider Family Medicine
DX: E07.9 Disorder of thyroid, unspecified (principal); D45 Polycythemia vera; D75.1 Secondary polycythemia
CPT/HCPCS: 84439; 84443; 84480; 85025

== ENCOUNTER → 2020-11-16 19:17 | Outpatient (ROUT) | payer MEDICARE, SELFPAY ==
[2020-08-11 11:38] VITALS: BMI 57.6
[2020-11-16 20:01] LABS: Add Manual Diff / Slide Review NO; Basophils Absolute Auto 0 /uL (0-100); Basophils Percent Auto 0.3 % (0-2); Eosinophils Absolute Auto 200 /uL (0-450); Hematocrit 45.9 % (36-46); Hemoglobin 14.3 g/dL (12.0-16.0); Lymphocytes Absolute Auto 900 /uL (1100-4500); Lymphocytes Percent Auto 11.1 % (25-40); Mean Corpuscular HGB Conc 31.2 % (30-36); Mean Corpuscular Hemoglobin 19.3 PG (26-34); Mean Corpuscular Volume 62.1 fL (80-100); Monocytes Absolute Auto 800 /uL (0-900); Monocytes Percent Auto 10.1 % (3-14); Neutrophils Absolute Auto 6200 /uL (1500-7000); Neutrophils Percent Auto 75.5 % (50-75); Red Cell Distribution Width 21.9 % (11.6-14.8); White Blood Cell Count 8.2 X10^3/uL (4.5-11.0)
[2020-11-16 20:05] LABS: Red Blood Cell Count 7.39 X10^6/uL (4.0-5.2)
[2020-11-16 20:28] LABS: Anisocytosis 1+; Microcytosis 2+; Platelet Count 567 X10^3/uL (150-400)
[2020-11-16 20:29] LABS: Ovalocytes 1+; Poikilocytosis 2+
== END ==
PROVIDERS: Family Provider Physician Assistant Medical; PCP Family Medicine; Visit Provider Internal Medicine
DX: D75.1 Secondary polycythemia (principal)
CPT/HCPCS: 85025

== ENCOUNTER → 2020-12-09 08:56 | Outpatient (CLI) | payer MEDICARE, SELFPAY ==
[2020-08-11 11:38] VITALS: BMI 57.6
[2020-12-09 20:04] LABS: COVID19 - ORCAS (NP or Nasal) Negative (Negative)
== END ==
PROVIDERS: Family Provider Physician Assistant Medical; PCP Family Medicine; Referring Provider Physician Assistant Medical; Visit Provider Physician Assistant Medical
DX: Z20.822 Contact with and (suspected) exposure to COVID-19 (principal)
CPT/HCPCS: C9803; U0003

== ENCOUNTER → 2021-02-01 07:36 | Outpatient (CLI) | payer MEDICARE, SELFPAY ==
[2020-08-11 11:38] VITALS: BMI 57.6
[2021-02-01 20:46] LABS: COVID19 - ORCAS (NP or Nasal) Negative (Negative)
== END ==
PROVIDERS: Family Provider Physician Assistant Medical; PCP Family Medicine; Visit Provider Family Medicine
DX: Z20.822 Contact with and (suspected) exposure to COVID-19 (principal)
CPT/HCPCS: C9803; U0003